=== PATIENT | female | born 1995 | race American Indian/Alaskan Native ===

== ENCOUNTER 2017-06-20 12:21 | Outpatient (CLI) | payer OTHER ==
--- NOTE | 2017-06-21 10:32 | Ultrasound Report ---
RIGHT DIGITAL DIAGNOSTIC MAMMOGRAM with CAD and RIGHT BREAST ULTRASOUND: 06/20/17 12:21:00 CLINICAL: 22-year-old with a right breast lump. She had a right breast ultrasound 06/19/14 which revealed probable benign fibroadenomas at 1 o'clock and 6 o'clock. However she did not return for followup as recommended. COMPARISON:06/19/14 right breast ultrasound. FINDINGS: The breast is extremely dense, which may obscure small masses and limit the sensitivity of mammography. An oval circumscribed mass with a gentle lobulations measures 3.9 cm and correlates with the previously described mass at 6 o'clock. A second partially circumscribed with lobulations is identified at 2 o'clock. No architectural distortion or suspicious calcifications. Ultrasound of the right breast (including all four quadrants and the retroareolar area) was performed. An oval solid heterogeneous hypoechoic grossly smooth mass at 1 o'clock at the areola measures 3.4 x 1.1 x 3.0 cm and correlates with the previously described solid mass measuring 3.1 x 1.4 x 3.0 cm. A similar solid oval heterogeneous hypoechoic mass at 7 o'clock 6 cm from the nipple measures 3.3 x 1.5 x 2.9 cm and correlates with the previously described mass at 6 o'clock measuring 3.4 x 2.3 cm. A third solid oval heterogeneous hypoechoic mass is identified at 4 o'clock 4 cm from the nipple and it measures 0.6 x 0.5 x 0.3 cm. No other solid mass and no cyst or suspicious shadowing. IMPRESSION: 1. Stable benign fibroadenomas at 1 o'clock and at 6 to 7 o'clock without significant change compared to the 2015 exam. 2. A probably benign 6 mm solid mass at 4 o'clock 4 cm from the nipple. Recommend six month followup ultrasound to reevaluate this mass. BI-RADS CATEGORY: 3 - - Probably Benign ACR BI-RADS MAMMOGRAPHIC CODES: 0 = Needs additional imaging evaluation; 1 = Negative; 2 = Benign; 3 = Probably benign; 4 = Suspicious; 5 = Malignant; 6 = Known biopsy-proven malignancy COMMENT: 1. Dense breast tissue, i.e., adenosis, fibrocystic changes, etc., may obscure an underlying neoplasm. 2. Approximately 10% of cancers are not detected with mammography. 3. A negative mammography report should not delay biopsy if a clinically suspicious mass is present. COMMENT: Patient follow-up letters are generated by our [employer] application.
== END 2017-06-20 12:22 | disposition home or self-care (01) ==
LOC: MAMMO 12:21
PROVIDERS: ATTEND Nurse Practitioner Family
DX: D24.1 Benign neoplasm of right breast (principal)